=== PATIENT | female | born 1940 | race African-American/Black ===

== ENCOUNTER 2018-11-15 10:13 | Inpatient (IN) | payer OTHER, MEDICAID ==
[~2018-11-15] VITALS: Ht 160 cm; Wt 79.8 kg
[2018-11-15 10:18] VITALS: Ht 160 cm; Wt 79.8 kg
[2018-11-15 11:23] LABS: BASOPHIL % 0.5 % (0-2); PLATELET COUNT 167 x10^3mcL (130-400)
[2018-11-15 11:44] LABS: ALKALINE PHOSPHATASE 68 U/L (46-116); ALT/SGPT 27 U/L (14-59); AST/SGOT 17 U/L (15-37); BILIRUBIN TOTAL 0.5 mg/dL (0.20-1.00); CALCIUM 9.5 mg/dL (8.5-10.1); CARBON DIOXIDE 29.8 mmol/L (21-32); CREATININE SERUM 0.8 mg/dL (0.6-1.0); GLUCOSE SERUM 139 mg/dL (74-106); LIPASE 70 IU/L (73-393); TOTAL PROTEIN, SERUM 6.7 g/dL (6.4-8.2)
[2018-11-15 11:45] LABS: ALBUMIN 2.9 g/dL (3.4-5.0)
[2018-11-15 11:53] LABS: CHLORIDE SERUM 98 mmol/L (98-107); POTASSIUM SERUM 3.6 mmol/L (3.5-5.1); SODIUM SERUM 139 mmol/L (136-145)
[2018-11-15 11:57] LABS: RED CELL DISTRIBUTION WIDTH 16.8 % (11.5-14.5)
[2018-11-15] MEDS ORDERED: PREDNISOLO15 MG/5 M1 PO (14:37)
[2018-11-15] MEDS ORDERED: PENTASA250 MG PO (14:38)
[2018-11-15] MEDS ORDERED: VERAPAMIL HCL240 MG PO (14:38)
[2018-11-15] MEDS ORDERED: LOSARTAN POTASS25 M1 PO (14:39)
[2018-11-15] MEDS ORDERED: KAPVAY0.1 MG PO (14:39)
[2018-11-15] MEDS ORDERED: CARVEDILOL25 M1 PO (14:39)
[2018-11-15 14:40] LABS: MAGNESIUM 1.6 mg/dL (1.8-2.4); PHOSPHOROUS 2.9 mg/dL (2.5-4.9)
[2018-11-15] MEDS ORDERED: HYDRALAZINE HCL25 MG PO (14:40)
[2018-11-15] MEDS ORDERED: SIMVASTATIN20 M1 PO (14:40)
[2018-11-15] MEDS ORDERED: PRA0.5 PO (14:41)
[2018-11-15] MEDS ORDERED: LANTUS SOLOS100 U/M1 (14:41)
[2018-11-15] MEDS ORDERED: ALBUTEROL SULFAT3 M3 (14:42)
[2018-11-15] MEDS ORDERED: CYMBALTA30 M1 PO (14:42)
[2018-11-15] MEDS ORDERED: PRILOSEC OTC20 M1 PO (14:43)
[2018-11-15] MEDS ORDERED: GABAPENTIN600 M1 PO (14:43)
[2018-11-15] MEDS ORDERED: NIT0.3 (14:44)
[2018-11-15 14:45] LABS: ATYPICAL LYMPH 4 %; BAND NEUTROPHIL 0 % (0-10); BASOPHIL 0 % (0-2); MONOCYTE 9 % (0-7); SEGMENTED NEUTROPHILS 57 % (37-75); rbc morphology (normal/abnorm) ABNORMAL (NORMAL)
[2018-11-15 14:46] LABS: PLATELET MORPHOLOGY PLATELETS DECREASED
[2018-11-15] MEDS ORDERED: NORCO1 TA2 PO (14:48)
[2018-11-15 17:24] LABS: microscopic required? YES; urine erythrocyte TRACE (NEGATIVE)
[2018-11-15 17:58] VITALS: BP 107/67
[2018-11-15 23:42] VITALS: BP 147/103
[2018-11-16 03:30] VITALS: BP 145/89
[2018-11-16 05:36] LABS: CALCIUM 8.4 mg/dL (8.5-10.1); CARBON DIOXIDE 30.2 mmol/L (21-32); CHLORIDE SERUM 101 mmol/L (98-107); CREATININE SERUM 0.5 mg/dL (0.6-1.0); GLUCOSE SERUM 112 mg/dL (74-106); MAGNESIUM 1.5 mg/dL (1.8-2.4); PHOSPHOROUS 4.1 mg/dL (2.5-4.9); SODIUM SERUM 141 mmol/L (136-145)
[2018-11-16 05:41] LABS: POTASSIUM SERUM 2.9 mmol/L (3.5-5.1)
[2018-11-16 05:52] LABS: BASOPHIL % 0.3 % (0-2); PLATELET COUNT 150 x10^3mcL (130-400)
[2018-11-16 05:54] LABS: RED CELL DISTRIBUTION WIDTH 17.5 % (11.5-14.5)
[2018-11-16 12:55] VITALS: BP 147/78
[2018-11-16 15:20] VITALS: BP 106/62
[2018-11-16 21:16] VITALS: BP 99/61
[2018-11-17 05:24] VITALS: BP 162/78
[2018-11-17 06:42] LABS: CALCIUM 7.6 mg/dL (8.5-10.1); CHLORIDE SERUM 104 mmol/L (98-107); CREATININE SERUM 0.6 mg/dL (0.6-1.0); GLUCOSE SERUM 77 mg/dL (74-106); MAGNESIUM 1.9 mg/dL (1.8-2.4); PHOSPHOROUS 3.4 mg/dL (2.5-4.9); POTASSIUM SERUM 3.5 mmol/L (3.5-5.1); SODIUM SERUM 141 mmol/L (136-145)
[2018-11-17 08:08] LABS: BASOPHIL % 0 % (0-2); PLATELET COUNT 142 x10^3mcL (130-400); RED CELL DISTRIBUTION WIDTH 17.7 % (11.5-14.5)
[2018-11-17 09:44] VITALS: BP 146/88
[2018-11-17 13:28] VITALS: BP 135/81
[2018-11-17 17:10] VITALS: BP 138/83
[2018-11-17 21:49] VITALS: BP 148/81
[2018-11-18 06:56] VITALS: BP 153/85
[2018-11-18 08:42] VITALS: BP 167/92
[2018-11-18 11:51] VITALS: BP 167/92
[2018-11-18 13:22] VITALS: BP 138/76
[2018-11-18 17:58] VITALS: BP 185/96
[2018-11-18 21:24] VITALS: BP 158/88
[2018-11-19 06:05] LABS: PLATELET COUNT 156 x10^3mcL (130-400)
[2018-11-19 06:11] VITALS: BP 176/85
[2018-11-19 06:22] LABS: CALCIUM 8.1 mg/dL (8.5-10.1); CARBON DIOXIDE 29.5 mmol/L (21-32); CHLORIDE SERUM 109 mmol/L (98-107); CREATININE SERUM 0.5 mg/dL (0.6-1.0); GLUCOSE SERUM 74 mg/dL (74-106); MAGNESIUM 1.8 mg/dL (1.8-2.4); PHOSPHOROUS 1.7 mg/dL (2.5-4.9); SODIUM SERUM 143 mmol/L (136-145)
[2018-11-19 06:32] LABS: BASOPHIL % 0 % (0-2)
[2018-11-19 06:41] VITALS: BP 168/88
[2018-11-19 07:51] VITALS: BP 181/95
[2018-11-19 15:54] VITALS: BP 172/98
[2018-11-19 20:37] VITALS: BP 182/96
[2018-11-19 22:22] VITALS: BP 137/77
[2018-11-20 05:46] VITALS: BP 156/78
[2018-11-20 06:27] LABS: CALCIUM 8.1 mg/dL (8.5-10.1); CARBON DIOXIDE 28.2 mmol/L (21-32); CHLORIDE SERUM 109 mmol/L (98-107); CREATININE SERUM 0.5 mg/dL (0.6-1.0); GLUCOSE SERUM 77 mg/dL (74-106); POTASSIUM SERUM 3.9 mmol/L (3.5-5.1); SODIUM SERUM 146 mmol/L (136-145)
[2018-11-20 07:40] LABS: BASOPHIL % 0.3 % (0-2); PLATELET COUNT 172 x10^3mcL (130-400)
[2018-11-20 07:43] LABS: RED CELL DISTRIBUTION WIDTH 17.4 % (11.5-14.5)
[2018-11-20 09:35] VITALS: BP 175/87
[2018-11-20] MEDS ORDERED: XARELTO10 M1 PO (10:01)
[2018-11-20] MEDS ORDERED: PROTONIX20 MG PO (10:02)
[2018-11-20 14:19] VITALS: BP 155/79; BP 175/87
[2018-11-20 14:44] VITALS: BP 155/79
[2018-11-20 14:48] VITALS: BP 155/79
== END 2018-11-20 17:00 | DRG 175 ==
LOC: ED 10:13 → EDBD 10:13 → IC 14:03 → DU 14:03 → MU 14:03 → IC 19:19 → DU 11-16 15:13 → MU 11-18 14:18
PROVIDERS: Emergency Medicine; Internal Medicine; ADMIT General Practice
DX: I26.99 Other pulmonary embolism without acute cor pulmonale (principal); J96.00 Acute respiratory failure, unspecified whether with hypoxia or hypercapnia; I82.403 Acute embolism and thrombosis of unspecified deep veins of lower extremity, bilateral; I10 Essential (primary) hypertension; E11.9 Type 2 diabetes mellitus without complications; E83.42 Hypomagnesemia
CPT/HCPCS: 82962; 83880; 85378; 97110-GP; 97530-GP; J1644; J1650; J1885; J2405; J3010; J3475; J3480; J7030; J7510; J7620; Q0092; Q9967